=== PATIENT | male | born 1940 | race Caucasian/White ===

== ENCOUNTER → 2017-03-15 | Emergency (ER) | payer OTHER ==
[2017-03-15 14:00] VITALS: BMI 30.8
--- NOTE | 2017-03-15 14:00 | PDOC ---
History of Present Illness - General Chief Complaint: Injury Stated Complaint: FELL ON SUNDAY, RT BUTTOCK PAIN Time Seen by Provider: 03/15/17 13:40 - History of Present Illness Initial Comments: 03/15/17 14:00 75-year-old male with a past medical history of borderline DM, prior DVT, hyperlipidemia, hypertension, and atrial fibrillation He is on Coumadin. He usually walks with a cane at home Patient states that on Sunday, he was walking to his van, when he slipped and fell He states that he initially landed on his right buttock, which took the brunt of the fall, and then went over backwards He did not bang his head, and denies any head injury or loss of consciousness He states that he tripped and fell, and syncope was not the cause of the fall He initially couldn't get up, but he was helped up to a standing position by some bystanders, and he was able to stand He was however having some difficulty walking, even with his walker at home, and on Sunday he went to an urgent care center He had some x-rays done at the urgent care center, and was told they were negative He's been trying to walk at home with his walker, but is having progressive pain , and decreasing ambulation, and increasing difficulty walking He comes in today because the pain became more severe, and he was unable to ambulate He denies any abdominal pain, chest pain, shortness of breath, headache, double vision or blurred vision, or neck pain He denies any other complaints at this time, and the remainder of the review of systems are negative Past History - Past Medical History Allergies/Adverse Reactions: Allergies Allergy/AdvReac Type Severity Reaction Status Date / Time No Known Allergies Allergy Verified 03/15/17 13:31 Home Medications: Ambulatory Orders Aspirin [Aspirin EC] 81 mg PO DAILY 01/06/16 Atorvastatin Ca [Lipitor -] 10 mg PO HS 01/06/16 Enalapril Maleate [Vasotec -] 10 mg PO BID 01/06/16 Furosemide [Lasix -] 40 mg PO Q2D 01/06/16 Metoprolol Succinate [Toprol Xl -] 25 mg PO BID 01/06/16 Warfarin Sodium [Coumadin] 2.5 mg PO DAILY 01/06/16 Acetaminophen [Tylenol] 325 mg PO PRN PRN 03/15/17 Febuxostat [Uloric -] 40 mg PO DAILY 03/15/17 Tramadol HCl [Ultram -] 50 mg PO PRN PRN 03/15/17 Cardiac Disorders: Yes (CAD WTIH STENTS 2001) Disorders: Yes (H/O EPIDYDIMITIS) HTN: Yes Hypercholesterolemia: Yes Other medical history: GOUT - Surgical History Cardiac Surgery: Yes (CARDIAC STENTS 2001) - Psycho/Social/Smoking Cessation Hx Anxiety: No Suicidal Ideation: No Smoking History: Former smoker Have you smoked in the past 12 months: No Information on smoking cessation initiated: No Hx Alcohol Use: No Drug/Substance Use Hx: No Substance Use Type: None *Physical Exam - Vital Signs Last Vital Signs Temp Pulse Resp BP Pulse Ox 98.1 F 87 20 144/57 91 L 03/15/17 13:30 03/15/17 13:30 03/15/17 13:30 03/15/17 13:30 03/15/17 13:30 - Physical Exam Comments: 03/15/17 14:06 Physical exam Last Vital Signs Temp Pulse Resp BP Pulse Ox 98.1 F 87 20 144/57 91 L 03/15/17 13:30 03/15/17 13:30 03/15/17 13:30 03/15/17 13:30 03/15/17 13:30 GENERAL: The patient is awake, alert, and fully oriented, and in no apparent distress. HEAD: Normal with no signs of trauma. EYES: sclera anicteric, conjunctiva are normal. ENT: Moist mucous membranes. NECK: Normal range of motion, supple No C-spine tenderness LUNGS: Breath sounds equal, clear to auscultation bilaterally. No wheezes, and no crackles. HEART: Irregularly irregular rate and rhythm, normal S1 and S2 without murmur, rub or gallop. There are some scattered irregular beats noted ABDOMEN: Soft, nontender, normoactive bowel sounds. No guarding, no rebound. No masses appreciated. BACK: There is no T-spine tenderness There is lower LS-spine tenderness into the coccyx EXTREMITIES: There is a large bruise extending from the greater trochanter of the right hip, into the right buttock, which is tender The pelvis is stable, and there is some point tenderness on the pubic ramus There is some posterior pelvis tenderness to palpation There is tenderness and diminished range of motion of the hip, with some medial leg tenderness with motion of the hip also There is full range of motion of the knee with some tenderness, and there is no tenderness distally below the knee There is no left hip tenderness NEUROLOGICAL: The patient is alert and answering questions, and moving all extremities with limitation of RLE due to pain PSYCH: Normal mood, normal affect. SKIN: Warm, Dry, ED Treatment Course - LABORATORY CBC & Chemistry Diagram: 03/15/17 14:15 03/15/17 14:15 - RADIOLOGY Radiology Studies Ordered: Category Date Time Status FEMUR-RIGHT [RAD] Stat Radiology 03/15/17 13:56 Ordered HIP & PELVIS-RIGHT [RAD] Stat Radiology 03/15/17 13:56 Ordered KNEE 3 POS-RIGHT [RAD] Stat Radiology 03/15/17 13:56 Ordered SPINE-LUMBAR SACRAL [RAD] Stat Radiology 03/15/17 13:56 Ordered Medical Decision Making - Medical Decision Making 03/15/17 16:02 X-rays of the right hip and pelvis There is a comminuted acetabular fracture with involvement of the medial wall, and medial displacement of the fracture fragments into the pelvis, and medial displacement of the femoral head Right femur x-ray No acute fracture of the right femur is seen Right knee series There is DJD, but no acute fracture LS-spine No acute fracture is seen in the LS-spine 03/15/17 16:11 Labwork reviewed Laboratory Results - last 24 hr 03/15/17 03/15/17 03/15/17 14:15 14:15 14:15 WBC 8.1 RBC 4.03 Hgb 13.5 Hct 40.8 MCV 101.2 H MCHC 33.2 RDW 13.2 Plt Count 135 D MPV 8.5 INR 3.31 H D Sodium 140 Potassium 4.1 Chloride 103 Carbon Dioxide 25 Anion Gap 12 BUN 35 H D Creatinine 0.9 Creat Clearance w eGFR > 60 Random Glucose 133 H Calcium 8.4 Total Bilirubin 2.3 H D AST 61 H D ALT 40 D Alkaline Phosphatase 73 Total Protein 6.4 Albumin 3.[address] Davison, who reviewed the films and CAT scan-patient will need to be transferred to orthopedic trauma Center because repair would be too complex to deal with here at [facility] Case discussed with patient's primary care physician, , at [facility] Would prefer to have the patient transferred to [facility] transfer center called 03/15/17 16:[address] Stokes - orthopedic trauma surgery at [facility] Accepts patient for transfer to [facility] He will also consult patient's primary care doctor for coumadin and medical management Case discussed with transfer center, awaiting bed approval 03/15/17 16:36 EKG Atrial fibrillation with a ventricular response rate of 85 Left axis deviation -27 Incomplete left bundle branch block Nonspecific ST-T waves Poor R wave progression across the anterior precordium When compared to the EKG of 01/06/2016 Today's EKG is unchanged from the prior EKG 03/15/17 17:00 CT scan of the pelvis There are comminuted fractures through the acetabulum including the medial wall , anterior and posterior columns, and there is also a nondisplaced fracture through the inferior pubic ramus There was a questionable right protrusio acetabuli There is no evidence of femoral fractures, and the left hemipelvis is intact 03/15/17 17:24 Transfer center states that pt will now be going to [facility], and they are waiting for a pt. discharge to get him a bed 03/15/17 17:44 Bed assignment -Room [address] 502 A - LTAC[facility] 03/15/17 17:55 Vital Signs - 24 hr 03/15/17 03/15/17 13:30 17:44 Temperature 98.1 F 98.6 F Pulse Rate 87 Pulse Rate [ 91 H Right] Respiratory 20 20 Rate Blood Pressure 144/57 Blood Pressure 131/68 [Left Arm] O2 Sat by Pulse 91 L 100 Oximetry (%) Impression-complex right acetabular fracture, inferior pubic ramus fracture *DC/Admit/Observation/Transfer Diagnosis at time of Disposition: Right acetabular fracture, Inferior pubic ramus fracture - Discharge Dispostion Disposition: TRANSFER ACUTE CARE/OTHER HOSP - Transfer to Acute Care Facility Receiving Facility: [facility] Accepting Physician:: Dr. Stokes and Dr Whiting - Trauma Orthopedics
[2017-03-15 14:50] LABS: MCH 33.6 pg (25.7-33.7); MCHC 33.2 g/dl (32.0-35.9); MEAN CELL VOLUME 101.2 fl (80-96); MEAN PLT VOLUME 8.5 fl (7.5-11.1); PLATELET COUNT 135 K/MM3 (134-434); RDW 13.2 % (11.9-15.9); WHITE BLOOD COUNT 8.1 K/mm3 (4.0-10.8)
[2017-03-15 15:14] LABS: ALBUMIN 3.5 g/dl (3.5-5.0); ALK PHOS 73 U/L (32-92); ANION GAP 12 (8-16); BILIRUBIN,TOTAL 2.3 mg/dl (0.2-1.0); CALCIUM 8.4 mg/dl (8.4-10.2); CO2 25 mmol/L (22-28); CREATININE 0.9 mg/dl (0.6-1.3); GLUCOSE,RANDOM 133 mg/dl (74-106); SGOT/AST 61 U/L (10-42); SGPT/ALT 40 U/L (10-40); TOT PROT 6.4 g/dl (6.4-8.3)
[2017-03-15 15:24] LABS: INR 3.31 (0.82-1.09); PROTHROMBIN TIME (PATIENT) 36.2 SEC (10.2-13.0)
[2017-03-15 17:45] VITALS: BP 131/68; PULSE 91; TEMP 98.6
--- NOTE | 2017-03-19 10:56 | EKG ---
Test Reason : Blood Pressure : / mmHG Vent. Rate : 085 BPM Atrial Rate : 081 BPM P-R Int : 000 ms QRS Dur : 116 ms QT Int : 384 ms P-R-T Axes : 000 -27 084 degrees QTc Int : 456 ms ATRIAL FIBRILLATION LEFTWARD AXIS NON-SPECIFIC INTRA-VENTRICULAR CONDUCTION DELAY NONSPECIFIC T WAVE ABNORMALITY ABNORMAL ECG NO PREVIOUS ECGS AVAILABLE Confirmed by JOE VIDES MD ([id number]) on 03/19/2017 10:56:14 AM Referred By: KAREN CADENA Confirmed By:JOE VIDES MD
== END | disposition short-term general hospital (02) ==
LOC: FER 13:29
DX: S32.401A Unspecified fracture of right acetabulum, initial encounter for closed fracture (principal); S32.591A Other specified fracture of right pubis, initial encounter for closed fracture; W18.39XA Other fall on same level, initial encounter; Y93.89 Activity, other specified; Y92.410 Unspecified street and highway as the place of occurrence of the external cause; Z87.891 Personal history of nicotine dependence; Z95.0 Presence of cardiac pacemaker; E78.00 Pure hypercholesterolemia, unspecified; Z99.89 Dependence on other enabling machines and devices; Z86.718 Personal history of other venous thrombosis and embolism; Z79.01 Long term (current) use of anticoagulants; I48.91 Unspecified atrial fibrillation
CPT/HCPCS: 36415; 72100-TC; 72192-TC; 73523-TC; 73552-TC-RT; 73562-TC-RT; 80053; 85027; 85610; 93005; 99282-25